=== PATIENT | female | born 1955 | race Caucasian/White ===

== ENCOUNTER 2023-04-29 06:01 | Inpatient (IN) ==
--- NOTE | 2023-04-07 11:23 | PAT Medication Instructions ---
Medication Instructions Date of Service April 07, 2023 Home Medications ascorbic acid (vitamin C) 1,000 mg tablet (Vitamin C) 1 g PO QAM cholecalciferol (vitamin D3) 25 mcg (1,000 unit) tablet (Vitamin D3) 25 mcg PO QAM ginkgo biloba 1 tab PO QAM glucosamine-chondroitin 250 mg-200 mg tablet (Osteo Bi-Flex) 1 tab PO QAM hydrocodone 5 mg-acetaminophen 325 mg tablet 1 tab PO HS PRN Pain ibandronate 150 mg tablet 150 mg PO MONTHLY ibuprofen 200 mg tablet (Advil) 400 mg PO BID PRN Pain magnesium citrate 100 mg tablet 400 mg PO QAM multivitamin 1 tab PO QAM psyllium husk 0.52 gram capsule (Fiber (psyllium husk)) 0.52 g PO BID rosuvastatin 5 mg tablet 5 mg PO QAM Continue as directed ibandronate 150 mg tablet 150 mg PO MONTHLY (unless surgeon directed otherwise) ASK your surgeon for instructions ibuprofen 200 mg tablet (Advil) 400 mg PO BID PRN Pain STOP taking 2 weeks before surgery ginkgo biloba 1 tab PO QAM glucosamine-chondroitin 250 mg-200 mg tablet (Osteo Bi-Flex) 1 tab PO QAM DO NOT take the morning of surgery ascorbic acid (vitamin C) 1,000 mg tablet (Vitamin C) 1 g PO QAM cholecalciferol (vitamin D3) 25 mcg (1,000 unit) tablet (Vitamin D3) 25 mcg PO QAM magnesium citrate 100 mg tablet 400 mg PO QAM multivitamin 1 tab PO QAM psyllium husk 0.52 gram capsule (Fiber (psyllium husk)) 0.52 g PO BID Take morning of surgery With a small sip of water, OTHERWISE NOTHING TO EAT OR DRINK AFTER MIDNIGHT: rosuvastatin 5 mg tablet 5 mg PO QAM Take evening before surgery hydrocodone 5 mg-acetaminophen 325 mg tablet 1 tab PO HS PRN Pain (if needed) psyllium husk 0.52 gram capsule (Fiber (psyllium husk)) 0.52 g PO BID Other Notes If you have any questions please call us at [phone] or [phone] or [phone] or [phone]
--- NOTE | 2023-04-10 14:05 | Anesthesiology Consultation ---
Date of Service April 10, 2023 Assessment & Plan (1) Encounter for pre-operative examination: Chart Review Chart Review: Acceptable Risk for Surgery (pending PCP clearance with response re: anemia ) and Patient NOT seen in Pre Admission Testing - Awaiting PCP clearance 04/14/23 (Dr. Betts- [facility]) (Please send optimization form along with preop testing to PCP - need response) Per PAT appt on 04/10/23, no recent illness/disease exposures, illness related symptoms, or recent illness/disease positive tests. Will leave to surgeon's discretion if preop Covid testing needed Teaching & Discussion Pre-Anesthesia Teaching/Discussion Notes: Instructed NPO after midnight before surgery,except medications with 15 cc of water. Medication instructions provided according to the PAT guidelines. History Surgery Operation Date: 04/29/23 12:25 Proposed Procedures p C5-C7 Anterior Cervical Discectomy and Fusion - Ajit Rincon DO Height/Weight Height: 5 ft 2 in Weight: 61.3 kg Allergies Allergy/AdvReac Type Severity Reaction Status Date / Time Penicillins Allergy Severe Rash Verified 04/07/23 10:18 Medications Home Medications Medication Instructions Recorded Confirmed Last Taken ascorbic acid (vitamin C) 1,000 mg 1 g PO QAM 04/07/23 04/07/23 Unknown tablet (Vitamin C) cholecalciferol (vitamin D3) 25 25 mcg PO QAM 04/07/23 04/07/23 Unknown mcg (1,000 unit) tablet (Vitamin D3) ginkgo biloba 1 tab PO QAM 04/07/23 04/07/23 Unknown glucosamine-chondroitin 250 mg-200 1 tab PO QAM 04/07/23 04/07/23 Unknown mg tablet (Osteo Bi-Flex) hydrocodone 5 mg-acetaminophen 325 1 tab PO HS PRN Pain 04/07/23 04/07/23 Unknown mg tablet ibandronate 150 mg tablet 150 mg PO MONTHLY 04/07/23 04/07/23 Unknown ibuprofen 200 mg tablet (Advil) 400 mg PO BID PRN Pain 04/07/23 04/07/23 Unknown magnesium citrate 100 mg tablet 400 mg PO QAM 04/07/23 04/07/23 Unknown multivitamin 1 tab PO QAM 04/07/23 04/07/23 Unknown psyllium husk 0.52 gram capsule 0.52 g PO BID 04/07/23 04/07/23 Unknown (Fiber (psyllium husk)) rosuvastatin 5 mg tablet 5 mg PO QAM 04/07/23 04/07/23 Unknown Past Medical History Medical History Irregular heart beat "an extra beat" cardiac workup with PCP was negative. no current issues. History of COVID-14 January 2021 -> severe flu symptoms and loss of taste/smell- no current symptoms Bulging of cervical intervertebral disc Degenerative disc disease Chronic neck pain Hyperlipidemia Exercise / Class Metabolic Activity II 4-5 Yardwork/Stairs/Walk up hill (one flight of stairs - no chest pain or SOB ) Past Family History Family History Mother FHx: colon cancer Family history of leukemia Family history of cervical cancer Past Surgical History Surgical History (Updated 04/11/23 @ 08:40 by Jody Diaz PA-C) History of ankle surgery bilateral ankle spurs removed S/P laparotomy with lysis of adhesions History of section x3 History of breast biopsy benign S/P epidural steroid injection cervical History of colonoscopy H/O partial thyroidectomy (~1984) follicular adenoma/goiter History of carpal tunnel release Left side 04/09/23 Right side 03/24/23 (Patient states both [facility] surgeon's are aware of CTR and cervical surgery) Past Anesthesia History No Hx of Anesthesia Complications and No Family Hx of Anesthesia Complications History of PONV No Hx of PONV and No Hx of Motion Sickness Social History Smoking Status: Never smoker Do You Dip or Chew Tobacco: No Hx Alcohol Use: No Hx Substance Use: No substance use type: does not use Review of Systems - Hx of snoring- no hx of sleep study (sleeps alone) Patient denies chest pain, shortness of breath, dyspnea on exertion, reflux, cough, wheezing, palpitations. No hx of seizures, stroke, OR. No hx of blood clots or blood transfusions Physical Exam Vital Signs VITALS BP 122/69 P 70 TEMP 98.3 SP02 97% RESP 16 Constitutional no acute distress ENMT Mouth: no TMJ clicking Thyromental Distance: < 3.5 Finger Breadths (3.0) Mallampati Class: I Missing molar Crowns to molar Permanent bridge to side teeth Neck + limited neck extension (significant) Respiratory normal respiratory effort; no respiratory distress Auscultation: lungs clear to auscultation bilaterally; no wheezes Cardiovascular Rate/Rhythm: regular rate and regular rhythm Heart Sounds: no murmur Vessels: no carotid bruit Musculoskeletal Spine: + pain with cervical ROM Extremities: extremities normal to inspection Right hand swollen from previous CTR 03/24/23 Left hand currently wrapped in bandage from CTR 04/09/23 Psychiatric Orientation: alert Lab Results Anesthesia Preop Results Results Anesthesia Widget: WBC 8.94 K/ul (4.8-10.8) 04/10/23 Hgb 11.0 g/dl (12.0-16.0) L 04/10/23 Hct 33.2 % (37.0-47.0) L 04/10/23 Plt 330 K/uL (130-400) 04/10/23 Na 138 mmol/L (136-145) 04/10/23 K 4.0 mmol/L (3.5-5.1) 04/10/23 Cl 104 mmol/L (98-107) 04/10/23 CO2 26 mmol/L (21-32) 04/10/23 BUN 16 mg/dl (6-23) 04/10/23 Creat 0.42 mg/dl (0.6-1.2) L 04/10/23 Glucose Level 135 mg/dl (70-99(Fasting)) H 04/10/23 PT 10.3 Seconds (9.0-12.0) 04/10/23 PTT 27 Seconds (21-31) 04/10/23 INR 0.9 (0.9-1.1) 04/10/23 Urine Color Dark Yellow 04/10/23 Urine Appearance Clear (Clear) 04/10/23 Urine pH 7.0 (4.5-7.5) 04/10/23 Urine Specific Bent[place] 1.015 (1.000-1.030) 04/10/23 Urine Protein Negative (Negative) 04/10/23 Urine Glucose (UA) Negative (Negative) 04/10/23 Urine Ketones Negative (Negative) 04/10/23 Urine Blood Negative (Negative) 04/10/23 Urine Nitrite Negative (Negative) 04/10/23 Urine Bilirubin Negative (Negative) 04/10/23 Urine Urobilinogen Negative (Negative) 04/10/23 Urine Leukocyte Esterase Negative (Negative) 04/10/23 Blood Type A Positive 04/10/23 Antibody Screen NEGATIVE 04/10/23 Testing Laboratory Results Mild anemia - did have PERSON[facility] PROTE[employer]IST on 04/09/23 and 03/24/23- note sent to PCP to address at PCP appt; surgeon's office also informed 03/17/23= HGB A1C: 5.8 Electrocardiogram Date: 04/10/23 Findings: + NSR @ (71bpm) Diffuse minor nonspecific ST abnormality Chest X-Ray Date: 04/10/23 Findings: + NAD FINDINGS: Cardiomediastinal and hilar silhouettes are within normal limits. No pneumothorax, pleural effusion, airspace consolidation or pulmonary edema. Spondylitic spurring of the spine. Other Testing Holter monitor 02/15/2021 = normal Holter monitor study. Brief runs of PSVT. Longest 16 beats.
[~2023-04-29 06:01] MED LIST: ACETAMINOPHEN 500 MG TAB PO SCH; CeleBREX 200 MG CAP PO SCH; GABAPENTIN 300 MG CAP PO SCH; LR 15ML/HR IV SCH; LR 60ML/HR IV SCH; VANCOMYCIN HCL 1,000 MG/270 ML BAG IV SCH
[2023-04-29] MEDS ORDERED: fentaNYL citrate PF 100 MCG/2 ML VIAL ONE ×2 (07:03→08:31)
[2023-04-29] MEDS ORDERED: MIDAZOLAM HCL 1 MG/ML 2ML VIAL ONE (07:03)
[2023-04-29] MEDS ORDERED: ceFAZolin 330 MG/ML 1 GM VIAL ONE (07:04)
[2023-04-29] MEDS ORDERED: ROCURONIUM BROMIDE 10 MG/ML 5 ML VIAL IV ONE ×2 (07:13→08:17)
[2023-04-29] MEDS ORDERED: PROPOFOL IV EMULSION 10 MG/ML 20 ML VIAL IV ONE (07:13)
[2023-04-29] MEDS ORDERED: DEXAMETHASONE SOD INJ 4 MG/ML VIAL ONE (07:13)
[2023-04-29] MEDS ORDERED: LIDOCAINE 2% 2 ML VIAL/AMP(20MG/ML) INFIL ONE (07:13)
[2023-04-29] MEDS ORDERED: ONDANSETRON INJ 2 MG/ML 2 ML VIAL ONE (07:13)
--- NOTE | 2023-04-29 07:41 | History & Physical Bridge Note ---
Date of Service April 29, 2023 History & Physical Bridge Note I have examined the patient, reviewed the History & Physical and in the interval since the performance of the History & Physical I have noted the following changes of clinical significance: no changes noted
--- NOTE | 2023-04-29 07:42 | History & Physical Report ---
Date of Service April 29, 2023 Assessment & Plan (1) Cervical stenosis of spinal canal: Plan: Anterior cervical discectomy and fusion C5-C7 History of Present Illness Chief Complaint: Neck and arm pain Primary Care Provider: Dylan Morel MD This is a 67-year-old female who presents for chronic persistent neck and arm pain after failing course of nonoperative care is here for surgical invention. Allergies Allergy/AdvReac Type Severity Reaction Status Date / Time Penicillins Allergy Severe Rash Verified 04/29/23 06:51 Home Medications Medication Instructions Recorded Confirmed Type ascorbic acid (vitamin C) 1,000 mg 1 g PO QAM 04/07/23 04/29/23 History tablet (Vitamin C) cholecalciferol (vitamin D3) 25 25 mcg PO QAM 04/07/23 04/29/23 History mcg (1,000 unit) tablet (Vitamin D3) ginkgo biloba 1 tab PO QAM 04/07/23 04/29/23 History glucosamine-chondroitin 250 mg-200 1 tab PO QAM 04/07/23 04/29/23 History mg tablet (Osteo Bi-Flex) hydrocodone 5 mg-acetaminophen 325 1 tab PO HS PRN Pain 04/07/23 04/29/23 History mg tablet ibandronate 150 mg tablet 150 mg PO MONTHLY 04/07/23 04/29/23 History ibuprofen 200 mg tablet (Advil) 400 mg PO BID PRN Pain 04/07/23 04/29/23 History magnesium citrate 100 mg tablet 400 mg PO QAM 04/07/23 04/29/23 History multivitamin 1 tab PO QAM 04/07/23 04/29/23 History psyllium husk 0.52 gram capsule 0.52 g PO BID 04/07/23 04/29/23 History (Fiber (psyllium husk)) rosuvastatin 5 mg tablet 5 mg PO QAM 04/07/23 04/29/23 History Past Med/Surg History Medical History (Updated 04/29/23 @ 07:42 by Ajit Rincon DO) Irregular heart beat "an extra beat" cardiac workup with PCP was negative. no current issues. History of COVID-14 January 2021 -> severe flu symptoms and loss of taste/smell- no current symptoms Bulging of cervical intervertebral disc Degenerative disc disease Chronic neck pain Hyperlipidemia Surgical History (Updated 04/11/23 @ 08:40 by Jody Diaz PA-C) History of ankle surgery bilateral ankle spurs removed S/P laparotomy with lysis of adhesions History of section x3 History of breast biopsy benign S/P epidural steroid injection cervical History of colonoscopy H/O partial thyroidectomy (~1984) follicular adenoma/goiter History of carpal tunnel release Left side 04/09/23 Right side 03/24/23 (Patient states both [facility] surgeon's are aware of CTR and cervical surgery) Family History Mother FHx: colon cancer Family history of leukemia Family history of cervical cancer Social History Smoking Status: Never smoker Second Hand Exposure: No; Do You Dip or Chew Tobacco: No; Tobacco Cessation Education Requested by Patient: No Hx Alcohol Use: No Hx Substance Use: No Preferred Language: Lao Communication Ability: Effective Correctional Guard Required: No Beliefs That Will Affect Care: None Current Living Situation: Alone Other Information That Helps Us Care for You: No Feels Safe at Home: Yes Safety Concerns: Feels Safe At This Time Assistive Devices: Glasses and Hearing Aid - Bilateral Physical Exam Physical Exam: Patient is alert and oriented Heart regular in rhythm Lungs clear Results & Data Results & Data Vital Signs (Past 12 Hours) Vital Signs Temp Pulse Resp BP Pulse Ox O2 Del Method 04/29/23 06:46 36.9 C 82 20 141/75 H 100 Room Air
[2023-04-29] MEDS ORDERED: ePHEDrine sulfate 50 MG/ML AMP IV PRN (08:12)
[2023-04-29] MEDS ORDERED: PROMETHAZINE HCL 12.5 MG in SODIUM CHLORIDE 0.9% 50 ML IV PRN ×2 (08:12→10:54)
[2023-04-29] MEDS ORDERED: HYDROmorphone INJ 1 MG/ML SYRINGE IV PRN ×2 (08:12→10:54)
[2023-04-29] MEDS ORDERED: ONDANSETRON INJ 2 MG/ML 2 ML VIAL IV PRN ×2 (08:12→10:54)
[2023-04-29] MEDS ORDERED: ATROPINE SULFATE 0.1 MG/ML 10ML SYR IV PRN (08:12)
[2023-04-29] MEDS ORDERED: LABETALOL HCL IV 5 MG/ML 20ML IV PRN (08:12)
[2023-04-29] MEDS ORDERED: NALOXONE HCL 0.4 MG/1 ML VIAL/CARP IV PRN ×2 (08:12→10:54)
[2023-04-29] MEDS ORDERED: fentaNYL citrate PF 100 MCG/2 ML VIAL IV PRN (08:12)
[2023-04-29] MEDS ORDERED: FLUMAZENIL 0.1 MG/1 ML 10 ML VIAL IV PRN (08:12)
[2023-04-29] MEDS ORDERED: diphenhydrAMINE 50 MG/ML VIAL ONE (08:24)
[2023-04-29] MEDS ORDERED: SUGAMMADEX SODIUM 200 MG/2 ML VIAL IV ONE (08:55)
[2023-04-29] MEDS ORDERED: FLOSEAL HEMOSTATIC MATRIX 10ML TOP ONE (09:00)
[2023-04-29] MEDS ORDERED: PHENYLEPHRINE HCL 10 MG/ML VIAL ONE (09:07)
--- NOTE | 2023-04-29 09:24 | Operative Report ---
Post Operative Report Pre & Post Diagnosis Operation Date: 04/29/23 07:45 Pre-Op Diagnosis: Cervical spinal stenosis with radiculopathy Post-Op Diagnosis: Same I identified the patient and participated in the time-out.: Yes Procedure Operation Date: 04/29/23 07:45 Actual Procedures 1. Anterior cervical discectomy with bilateral foraminotomies C5-C6 C6-C7. #2 anterior cervical recent C5-C6 C6-C7. #3 placement Spira 6 mm cage C5-C6. 7 mm cage at C6-C7 both filled with I factor bone graft. #4 application of K2 M plate and screws at C5-C7. Surgeon Ajit Rincon, DO Skip Tender Martha Giraldo Estimated Blood Loss 10 Findings Consistent with Post-Op Diagnosis Specimens none Indications This is a 67-year-old female who presents above-mentioned diagnosis of failed course of nonoperative care is here for surgical intervention. Description of Procedure Patient was met with identified informed consent obtained. Patient was then taken to the operative suite underwent patient placed in a supine position on the Gen table with the head in the Ybarra head order. All bony prominences well-padded eyes inspected to ensure no external pressure placed upon. This point the anterior cervical spine was prepped and draped in a sterile fashion. With the assistance of fluoroscopy and L5-C6 vertebral body and a transverse incision was placed along the right anterior aspect of the cervical spine overlying this region. Blunt dissection with the assistance of bipolar cautery was performed down to expose the anterior cervical spine from C5-C7. Self-retaining tractors placed. Then performed a complete discectomy at C5-C6 out to the uncovertebral joints bilaterally. [place] distractor pins utilized to assist in visualization. Removed all posterior fibers longitudinal ligament bilateral foraminotomies performed and a 6 mm Spira cage with I factor tapped in position. Then proceeded to see 6 C7. Again complete discectomy performed out to evaluate diminished bilaterally. [place] distraction pins again utilized. Removed all posterior annular fibers longitudinal ligament bilateral foraminotomies performed and a 7 mm Spira cage with I factor tapped in position. Distracting apparatus was removed all anterior osteophytes burred to a smooth cortical surface and a K2 M plate and screws applied with the assistance of fluoroscopy. Incision was then copiously irrigated explored to ensure no damage surrounding structure remaining bleeding. 10 round ALON inserted. The incision was then closed with 2 Vicryl in a fashion of 4 Monocryl for final skin closure. Steri-Strips sterile dressing placed. Patient waken taken to recovery in stable condition. Please note spinal cord monitoring visualized at the procedure no changes noted. Lastly Martha Giraldo was present at the entire surgery involved the patient positioning complex portion of the surgery and final skin closure. I attest to the content of the Intraoperative Record and any orders documented therein. Any exceptions are noted below.
--- NOTE | 2023-04-29 09:40 | Fluoroscopy Report ---
INTRAOPERATIVE RADIOGRAPHS CLINICAL HISTORY: Cervical spinal fusion. Fluoro time: 13 seconds Ka,r: 1.46 mGy FINDINGS: 2 spot fluoroscopic views of the cervical spine are presented. There has been discectomy at C5-C6 and C6-C7 with anterior fusion at C5-C7. The orthopedic hardware appears intact. An endotrache al tube is in place. IMPRESSION: Intraoperative images from cervical spine fusion surgery as above. Electronically signed by: Renato Castro M.D. 04/29/2023 9:39 AM
--- NOTE | 2023-04-29 10:33 | Anesthesiology Progress Note ---
Date of Service April 29, 2023 Anesthesia Post Procedure Vital Signs Vital Signs: Temp Pulse Pulse Resp BP Pulse Ox O2 Del Method 04/29/23 10:20 71 16 145/67 H 98 Room Air 04/29/23 10:10 65 12 144/78 H 100 Oxymask 04/29/23 10:00 71 13 158/82 H 100 Oxymask 04/29/23 09:50 67 20 153/76 H 98 Oxymask 04/29/23 09:40 75 18 164/81 H 100 Oxymask 04/29/23 09:33 36.4 C L 92 H 17 169/90 H 96 Oxymask 04/29/23 06:46 36.9 C 82 20 141/75 H 100 Room Air O2 Flow Rate 04/29/23 10:20 04/29/23 10:10 2 04/29/23 10:00 2 04/29/23 09:50 4 04/29/23 09:40 4 04/29/23 09:33 6 04/29/23 06:46 Pain Intensity Neck: Pain Intensity: 4 Transfer of Care Handoff Completed per policy Notes Mental Status: alert / awake / arousable Patient Amnestic to Procedure: Yes Nausea / Vomiting: adequately controlled Pain: adequately controlled Airway Patency, RR, SpO2: stable & adequate BP & HR: stable & adequate Hydration State: stable & adequate Anesthetic Complications: no major complications apparent
[2023-04-29] MEDS ORDERED: bisacodyL 10 MG SUPP PR PRN (10:54)
[2023-04-29] MEDS ORDERED: ACETAMINOPHEN 1,000 MG/100 ML VIAL IV PRN (10:54)
[2023-04-29] MEDS ORDERED: SOD PHOSPHATE/SOD BIPHOSPHATE ENEMA 132 ML BTL PR PRN (10:54)
[2023-04-29] MEDS ORDERED: diphenhydrAMINE Capsule 25 MG CAP PO PRN (10:54)
[2023-04-29] MEDS ORDERED: METOCLOPRAMIDE HCL INJ 5 MG/ML 2 ML VIAL IV PRN (10:54)
[2023-04-29] MEDS ORDERED: RACEPINEPHRINE 2.25% NEBU SOLN 0.5 ML VIAL INH PRN (10:54)
[2023-04-29] MEDS ORDERED: ALUMINUM/MAGNESIUM SUSP 30 ML UDC PO PRN (10:54)
[2023-04-29] MEDS ORDERED: ONDANSETRON 4 MG OD TAB PO PRN (10:54)
[2023-04-29] MEDS ORDERED: DO NOT ADMINISTER FLU VACCINE PRN (10:54)
[2023-04-29] MEDS ORDERED: ACETAMINOPHEN 500 MG TAB PO PRN (10:54)
[2023-04-29] MEDS ORDERED: LACTATED RINGER'S 1,000 ML IV SCH (10:54)
[2023-04-29] MEDS ORDERED: hydrOXYzine HCl 25 MG TAB PO PRN (10:54)
[2023-04-29] MEDS ORDERED: traMADol HCL 50 MG TABLET PO PRN (10:54)
[2023-04-29] MEDS ORDERED: LORazepam 0.5 MG TAB PO PRN (10:54)
[2023-04-29] MEDS ORDERED: oxyCODONE HCL IR 5 MG TAB (IMMEDIATE RELEASE) PO PRN (10:54)
[2023-04-29] MEDS ORDERED: LORazepam 0.5 MG in SYRINGE 0.25 ML IV PRN (10:54)
[2023-04-29] MEDS ORDERED: DO NOT ADMINISTER PNEUMOCOCCAL VACCINE PRN (10:54)
[2023-04-29] MEDS ORDERED: dexAMETHasone 8 MG in SYRINGE 0 ML IV PRN (10:54)
[2023-04-29] MEDS ORDERED: FAMOTIDINE 20 MG TAB PO PRN (10:54)
[2023-04-29] MEDS ORDERED: MAGNESIUM HYDROXIDE SUSP 30 ML UDC PO PRN (10:54)
--- NOTE | 2023-04-29 11:24 | Hospitalist Consultation ---
Date of Consultation April 29, 2023 Assessment & Plan (1) Cervical stenosis of spinal canal: (2) Chronic neck pain: (3) Degenerative disc disease: (4) Hyperlipidemia: Cervical Spine Stenosis DJD neck - POD #[address] Rincon -Pain management, bowel regimen and DVT ppx per the primary team - PT/OT consults, pt is planning on outpatient therapy for carpal tunnel history to continue after discharge - Follow am CBC to monitor for acute blood loss - Chloraseptic spray for sore throat - Tolerating clear liquid diet so will stop fluids due to 1+ pitting edema in BLE, edema in hands as well. Encourage movement, foot pump, elevation of legs while seated/laying flat, encourage ambulation HLD - Cont statin therapy DVT ppx: SCDs, teds Lines: 2 PIV FEN/GI: Stop fluids, continue clear liquid diet, advance as tolerated per primary team Dispo: Patient from home, lives alone, likely to remain in hospital x 1-2 more days Thank you for involving us in the care of Ms. Forman. Please do not hesitate to call with questions or concerns. At this time medicine service will follow along. Supervising Physician Co-Signing Physician Notes Patient is a 67-year-old female with history of hyperlipidemia, PACs, cervical spinal stenosis and other medical problems was consulted for postop medical management after having anterior cervical discectomy with bilateral foraminotom ies C5-C6 C6-C7 by Dr. Rincon on 04/29/2023. Patient is doing well postoperatively. Reports chronic bilateral upper extremity numbness which he attributes to carpal tunnel syndrome. Denies any significant pain at surgical site during my encounter. Also denies any dyspnea, dizziness, chest pain, nausea, vomiting, abdominal pain. On exam patient is moderately built and nourished, no apparent distress, normocephalic/atraumatic, EOMI,Neck+ surgical site in dressing, collar, normal breath sounds, clear to auscultation, S1-S2, no murmur, abdomen soft, nontender, normal bowel sounds, alert, awake, altered, grossly no focal deficits, trace pedal edema,+ arthritis changes in upper extremities. Patient is consulted for postop medical management. Monitor for blood loss anemia. Bowel regimen to prevent constipation. Wound care, DVT prophylaxis, activity as per primary team. Continue statin for hyperlipidemia. Aspiration precautions. I personally reviewed the record. Patient is interviewed and examined at bedside. Patient's care is coordinated with Ligia Beckham PA-C. Please refer to the documentation above for details of patient's presentation and for discussion of other issues. History of Present Illness Reason for Consultation: Postop medical management Requesting Physician: Dr. Rincon Attending Physician: Ajit Rincon, DO History of Present Illness This is a 67-year-old female with PMHx of DJD, chronic neck pain, hyperlipidemia, history sinus tachycardia with PACs, history of anterior infarct, which was worked up and cleared by cardiology prior to surgical intervention, who underwent a elective anterior cervical discectomy with bilateral foraminotomies C5-C6 C6-C7 by Dr. Rincon on 04/29/2023. The patient is present here with her daughter at bedside. Patient reports that she is doing well, pain is currently well-controlled. Reports minor sore throat but is tolerating sips of fluid without difficulty, no trouble with breathing. She admits to having some on and off constipation as she has been on pain medication for recent bilateral carpal tunnel release. She had her right hand done on 03/24/2023 and then the left hand 2 weeks later. She is still slightly swollen in both hands, more so in the right since having these procedures done. She has started working with physical therapy for her hands. Patient also notes that she needs knee injection for chronic osteoarthritis, that has been on hold for her to have the anterior cervical surgery. Patient reports that her last bowel movement was 2 days ago, hard stools, she is agreeable to taking fiber and a stool softener. Allergies Allergy/AdvReac Type Severity Reaction Status Date / Time Penicillins Allergy Severe Rash Verified 04/29/23 06:51 Home Medications Medication Instructions Recorded Confirmed Type ascorbic acid (vitamin C) 1,000 mg 1 g PO QAM 04/07/23 04/29/23 History tablet (Vitamin C) cholecalciferol (vitamin D3) 25 25 mcg PO QAM 04/07/23 04/29/23 History mcg (1,000 unit) tablet (Vitamin D3) ginkgo biloba 1 tab PO QAM 04/07/23 04/29/23 History glucosamine-chondroitin 250 mg-200 1 tab PO QAM 04/07/23 04/29/23 History mg tablet (Osteo Bi-Flex) hydrocodone 5 mg-acetaminophen 325 1 tab PO HS PRN Pain 04/07/23 04/29/23 History mg tablet ibandronate 150 mg tablet 150 mg PO MONTHLY 04/07/23 04/29/23 History ibuprofen 200 mg tablet (Advil) 400 mg PO BID PRN Pain 04/07/23 04/29/23 History magnesium citrate 100 mg tablet 400 mg PO QAM 04/07/23 04/29/23 History multivitamin 1 tab PO QAM 04/07/23 04/29/23 History psyllium husk 0.52 gram capsule 0.52 g PO BID 04/07/23 04/29/23 History (Fiber (psyllium husk)) rosuvastatin 5 mg tablet 5 mg PO QAM 04/07/23 04/29/23 History hydrocodone 5 mg-acetaminophen 325 1 tab PO Q6H PRN pain #30 tabs 04/29/23 Rx mg tablet Patient History Medical History Irregular heart beat "an extra beat" cardiac workup with PCP was negative. no current issues. History of COVID-14 January 2021 -> severe flu symptoms and loss of taste/smell- no current symptoms Bulging of cervical intervertebral disc Degenerative disc disease Chronic neck pain Hyperlipidemia Surgical History History of ankle surgery bilateral ankle spurs removed S/P laparotomy with lysis of adhesions History of section x3 History of breast biopsy benign S/P epidural steroid injection cervical History of colonoscopy H/O partial thyroidectomy (~1984) follicular adenoma/goiter History of carpal tunnel release Left side 04/09/23 Right side 03/24/23 (Patient states both [facility] surgeon's are aware of CTR and cervical surgery) Family History Mother FHx: colon cancer Family history of leukemia Family history of cervical cancer Social History Smoking Status: Never smoker Second Hand Exposure: No; Do You Dip or Chew Tobacco: No; Tobacco Cessation Education Requested by Patient: No Hx Alcohol Use: No Hx Substance Use: No Preferred Language: Macanese Communication Ability: Effective Member Of The Legislative [employer] Required: No Beliefs That Will Affect Care: None Current Living Situation: Alone Other Information That Helps Us Care for You: No Feels Safe at Home: Yes Safety Concerns: Feels Safe At This Time Assistive Devices: Glasses and Hearing Aid - Bilateral Review of Systems Review of Systems: Constitutional: No fever, sweats or chills Eyes: No diplopia, no worsening or blurred vision ENT: normal hearing, no trouble swallowing, minimal neck pain, + sore throat Respiratory: No cough, sputum, dyspnea at rest or on exertion Cardiovascular: No chest pain, tightness or palpitations Abdomen: No pain, nausea, vomiting, diarrhea, + constipation Musculoskeletal: + hx of knee arthritis, recent bilateral carpal tunnel release, no calf pain, + hand and bilateral ankle swelling Neurologic: No weakness, numbness/tingling, or balance problems Psychiatric: No anxiety or depression Skin: No rash or itch Physical Exam Physical Exam: General: awake, alert, no apparent distress, white elderly female Head: Normocephalic, atraumatic ENT: PERRL, EOMI, no pharyngeal exudate, mucous membranes moist Chest: Anterior discectomy dressing C/D/I, ALON drain in place, cervical collar in position, clear to auscultation, on room air, no adventitious breath sounds Cardiac: Regular rate and rhythm, + faint murmur, no JVD, +1 pitting edema in bilateral ankles, normal peripheral pulses, good capillary refill Abdominal: NABS x 4 quadrants, soft, nondistended, nontender to palpation, no rebound or guarding Extremities: Normal inspection, 1+ pitting peripheral edema in ankles, +edema in hand bilaterally, +healing bilateral carpal tunnel release, no erythema, calfs nontender to palpation Psych: Normal mood and affect Neuro: AAO x 3, strength intact bilaterally and rated 5/5, no motor deficits, speech is clear, no peripheral sensory deficits Results & Data Results & Data Vital Signs (Past 12 Hours) Vital Signs Temp Pulse Pulse Resp BP Pulse Ox O2 Del Method 04/29/23 11:00 36.7 C 70 16 135/55 L 96 Room Air 04/29/23 10:50 37.1 C 69 19 135/63 95 Room Air 04/29/23 10:40 72 17 136/71 99 Room Air 04/29/23 10:30 70 12 147/74 H 96 Room Air 04/29/23 10:20 71 16 145/67 H 98 Room Air 04/29/23 10:10 65 12 144/78 H 100 Oxymask 04/29/23 10:00 71 13 158/82 H 100 Oxymask 04/29/23 09:50 67 20 153/76 H 98 Oxymask 04/29/23 09:40 75 18 164/81 H 100 Oxymask 04/29/23 09:33 36.4 C L 92 H 17 169/90 H 96 Oxymask 04/29/23 06:46 36.9 C 82 20 141/75 H 100 Room Air O2 Flow Rate 04/29/23 11:00 04/29/23 10:50 04/29/23 10:40 04/29/23 10:30 04/29/23 10:20 04/29/23 10:10 2 04/29/23 10:00 2 04/29/23 09:50 4 04/29/23 09:40 4 04/29/23 09:33 6 04/29/23 06:46 Diagnostic Findings Cervical Spine X-Ray 04/29/23 07:45 INTRAOPERATIVE RADIOGRAPHS CLINICAL HISTORY: Cervical spinal fusion. Fluoro time: 13 seconds Ka,r: 1.46 mGy FINDINGS: 2 spot fluoroscopic views of the cervical spine are presented. There has been discectomy at C5-C6 and C6-C7 with anterior fusion at C5-C7. The orthopedic hardware appears intact. An endotracheal tube is in place. IMPRESSION: Intraoperative images from cervical spine fusion surgery as above. Electronically signed by: Renato Castro M.D. 04/29/2023 9:39 AM
[2023-04-29] MEDS ORDERED: CHLORASEPTIC (PHENOL) 1.4% SOLN 180 ML BTL MT PRN (12:08)
[2023-04-29] MEDS: HYDROmorphone INJ 0.5 MG/0.5 ML SYR IV PRN ×3 (13:02→19:31)
[2023-04-29] MEDS: CLINDAMYCIN/D5W 600 MG/50 ML BAG IV SCH ×2 (15:11→22:07)
[2023-04-29] MEDS ORDERED: DOCUSATE SODIUM/SENNA 50/8.6MG TAB PO SCH (21:00)
[2023-04-30] MEDS: HYDROmorphone INJ 0.5 MG/0.5 ML SYR IV PRN (05:39)
[2023-04-30] MEDS ORDERED: POLYETHYLENE (MIRALAX) 17 GM PACK PO SCH (06:00)
[2023-04-30 07:45] LABS: Hematocrit (blood only) 30.9 % (37.0-47.0); Hemoglobin 10.5 g/dl (12.0-16.0); Mean Corpuscular Hemoglobin 29.7 pg (25.0-34.0); Mean Corpuscular Volume 87.3 fL (80.0-100.0); Platelet Count 313 K/uL (130-400); RDW Coefficient of Variation 12.3 % (11.5-14.5); RDW Standard Deviation 39.8 fL (36.4-46.3); Red Blood Count 3.54 M/uL (4.20-5.40); White Blood Count 8.27 K/ul (4.8-10.8)
[2023-04-30 08:01] LABS: BUN Creatinine Ratio 23.1 (10-20); Calcium 8.6 mg/dl (8.6-10.3); Creatinine Clr Calc Pharmacy 107.7 ml/min; Est GFR (African American) 124.2 ml/min; Est GFR (Non-African American) 107.2 ml/min; Potassium 3.8 mmol/L (3.5-5.1)
[2023-04-30] MEDS ORDERED: MAGNESIUM OXIDE 400 MG TAB PO SCH (09:00)
[2023-04-30] MEDS ORDERED: ROSUVASTATIN CALCIUM 5 MG TAB PO SCH (09:00)
[2023-04-30] MEDS ORDERED: dexAMETHasone 6 MG in SYRINGE 0 ML IV SCH (09:00)
--- NOTE | 2023-04-30 11:06 | Discharge Summary ---
Date of Service April 30, 2023 Admission HPI Per Admitting Provider This is a 67-year-old female who presents for chronic persistent neck and arm pain after failing course of nonoperative care is here for surgical invention. Principal Diagnosis Cervical spinal stenosis with radiculopathy Discharge Data Allergies Allergy/AdvReac Type Severity Reaction Status Date / Time Penicillins Allergy Severe Rash Verified 04/29/23 06:51 Consultations 04/29/23 10:54 Consult Hospitalist Routine Procedures Performed Operation Date: 04/29/23 07:45 Actual Procedures p C5-C7 Anterior Cervical Discectomy and Fusion, Spinal Cord Monitor(Not Applicable) - Ajit Rincon DO Ordered Studies 04/29/23 07:45 FL cervical 2-3V Routine Hospital Course (1) Cervical stenosis of spinal canal: Patient went anterior cervical discectomy and fusion tolerated well stable orthopedic for postop labor postop day 1 she was swallowing well. No hoarseness. ALON drain decreasing probably. Excellent strength testing. Pain well-controlled. Subsequently discharged home. Discharge orders instructions from the chart for further review. Total Time Total Time Spent Total Time Spent (In Minutes): 20 minutes Discharge Plan Discharge Items Patient Disposition: Home - Self-Care Reason For Visit: Cervical Pain Discharge Diagnosis: Cervical spinal stenosis with radiculopathy Activity: As commented below Non-emergency contact: Primary Care Provider Call non-emergency contact if: you have any medication questions Follow-up/Referrals: Dylan Morel MD [Primary Care Provider] - Diet: Regular Addtl Attending Provider Instructions: ACTIVITY RECOMMENDATIONS: SELF CARE INSTRUCTIONS AFTER CERVICAL FUSIONS 1. No smoking. Smoking drastically decreases the chance of a solid fusion. 2. No bending, lifting more than 5 pounds, or twisting (roll like a log when turning in bed). 3. You may shower 3 days after surgery. Thoroughly dry wound. Do not soak in the tub. 4. Cervical collar: Must be worn at all times including sleeping. You may remove the brace only to bath, eat and if you are sitting in a recliner. 5. Please walk as much as you can for exercise. Gradually increase the distance that you walk as your endurance increases. SPECIAL CARE INSTRUCTIONS: VERY IMPORTANT TO READ AND REVIEW A. Do not take any anti-inflammatory medications (i.e. Indocin, Advil, Aspirin, Naprosyn, Aleve, Motrin, etc.) as these may inhibit the chance of a solid fusion. Tylenol is okay to take. B. Your surgical incision has been closed with a cosmetic suture under the skin that will dissolve in about 6 weeks. In 14 days, you can use a pair of clean scissors and cut the suture that is left outside of the skin at the ends of your incision. C. Complications are uncommon, but please contact us if you have any signs or symptoms of: 1. wound infection (fever higher than 102.5 degrees F, redness, separation of wound, drainage, or increasing pain from the incision) 2. blood clots in legs (pain, swelling, redness and warmth in legs) 3. urinary tract infection (fever higher than 102.5 degrees, burning upon urination or increased frequency of urination) 4. nerve problems (inability to walk on your toes or heels, numbness, loss of bowel or bladder control) 5. any other symptoms that concern you. D. Please call the office at if you have any concerns or questions about your operation or recovery. MANAGING PAIN AFTER SPINAL SURGERY 1. Narcotic medication is intended for short-term use and will be provided for surgical pain. Surgical pain usually lasts for a period of 4-6 weeks. Narcotic medication includes Percocet, Vicodin, Darvocet, Tylenol #3 or Lortab. 2. Longer-term pain is more appropriately treated with non-narcotic medication such as Tylenol ES. 3. Muscle spasm is not appropriately treated with narcotics. Muscle relaxers such as Soma, Flexeril or Skelaxin can be used along with Tylenol ES. 4. Remember that we all live with some "aches and pains". This is not unusual or uncommon after an injury or as we get older. 5. We will provide appropriate medication within the normal guidelines of their prescribed use. We will also be very cautious and aware of potential abuse and extended duration of patients' medication needs. 6. Please allow 2-3 days to process refills. Prescriptions will not be mailed but must be picked up at the office. FOLLOW UP VISIT: Keep your scheduled follow-up appointment. Any questions, please call the office at . Pending Studies at Discharge: No Stand-Alone Forms: iconDial, Smoking Cessation Medications and DC Order Prescriptions: New hydrocodone-acetaminophen 5-325 mg tablet 1 tab PO Q6H PRN (Reason: pain) Qty: 30 0RF Continued rosuvastatin 5 mg Tablet 5 mg PO QAM ibandronate 150 mg Tablet 150 mg PO MONTHLY multivitamin Tablet 1 tab PO QAM ascorbic acid (vitamin C) [Vitamin C] 1,000 mg Tablet 1 g PO QAM glucosamine-chondroitin [Osteo Bi-Flex] 250-200 mg Tablet 1 tab PO QAM psyllium husk [Fiber (psyllium husk)] 0.52 gram Capsule 0.52 g PO BID cholecalciferol (vitamin D3) [Vitamin D3] 25 mcg (1,000 unit) Tablet 25 mcg PO QAM magnesium citrate 100 mg Tablet 400 mg PO QAM ginkgo biloba 1 tab PO QAM hydrocodone-acetaminophen 5-325 mg Tablet 1 tab PO HS PRN (Reason: Pain) Discontinued ibuprofen [Advil] 200 mg Tablet 400 mg PO BID PRN (Reason: Pain) Discharge Orders: Discharge Order (Routine); Ordered 04/30/23 Ordered By: Ajit Rincon Admission Data Admit Date/Time: 04/29/23 09:27 Attending Provider: Ajit Rincon Admit Provider: Ajit Rincon Primary Care Provider: Dylan Morel Other Providers: Carisa Herrera
--- NOTE | 2023-04-30 11:47 | Hospitalist Progress Note ---
Date of Service April 30, 2023 Assessment & Plan (1) Cervical stenosis of spinal canal: (2) Chronic neck pain: (3) Degenerative disc disease: (4) Hyperlipidemia: Plan: Acute blood loss anemia secondary to post opertive loss -04/10 hgb 11.0, 04/30 hgb 10.5 10.5, corresponds to intraoperative losses documented Patient should follow up OP cbc Cervical Spine Stenosis DJD neck - POD #[address] Rincon -Pain management, bowel regimen and DVT ppx per the primary team - Discharge per primary HLD - Cont statin therapy DVT ppx: SCDs, teds Lines: 2 PIV FEN/GI: Stop fluids, continue clear liquid diet, advance as tolerated per primary team Dispo: Patient from home, lives alone, discharge per primary Thank you for involving us in the care of Ms. Forman. Please do not hesitate to call with questions or concerns. At this time medicine service will follow along. Admission and Anticipated Discharge Date Admission Date: April 29, 2023 Subjective Reports feeling "surprisingly"well after surgery Denies any uncontrolled pain at this time Review of Systems Review of Systems: All systems reviewed & are unremarkable except as noted in Subjective Physical Exam Constitutional: WD/WN, vitals as above Neck: c-collar in place, dressing anterior neck no strike through CDI Cardiovascular: RRR, no murmur, no edema Gastrointestinal (Abdomen): normal bowel sounds, soft, nontender, no hepatosplenomegaly Musculoskeletal: no cyanosis or clubbing, extremities motor strength 5/5 Results & Data Results & Data Vital Signs (Past 12 Hours) Vital Signs Temp Pulse Resp BP Pulse Ox O2 Del Method 04/30/23 10:19 78 16 95 Room Air 04/30/23 05:43 36.7 C 77 16 117/63 97 Room Air 04/30/23 05:42 71 16 97 Room Air 04/30/23 03:51 36.8 C 66 16 120/68 97 Room Air 04/30/23 03:15 74 18 97 Room Air 04/30/23 01:56 36.8 C 73 16 118/67 95 Room Air 04/30/23 00:00 36.7 C 83 16 114/67 97 Room Air Laboratory Results Short CBC 04/30/23 Range/Units 07:11 WBC 8.27 (4.8-10.8) K/ul Hgb 10.5 L (12.0-16.0) g/dl Hct 30.9 L (37.0-47.0) % Plt Count 313 (130-400) K/uL BMP 04/30/23 07:11 Sodium 136 Potassium 3.8 Chloride 102 Carbon Dioxide 27 BUN 9 Creatinine 0.39 L Glucose 100 H Calcium 8.6 Medications Administered Home Medications Medication Instructions Recorded Confirmed Last Taken ascorbic acid (vitamin C) 1,000 mg 1 g PO QAM 04/07/23 04/29/23 04/28/23 08:00 tablet (Vitamin C) cholecalciferol (vitamin D3) 25 25 mcg PO QAM 04/07/23 04/29/23 04/28/23 08:00 mcg (1,000 unit) tablet (Vitamin D3) ginkgo biloba 1 tab PO QAM 04/07/23 04/29/23 04/15/23 glucosamine-chondroitin 250 mg-200 1 tab PO QAM 04/07/23 04/29/23 04/15/23 mg tablet (Osteo Bi-Flex) hydrocodone 5 mg-acetaminophen 325 1 tab PO HS PRN Pain 04/07/23 04/29/23 04/28/23 17:00 mg tablet ibandronate 150 mg tablet 150 mg PO MONTHLY 04/07/23 04/29/23 Unknown magnesium citrate 100 mg tablet 400 mg PO QAM 04/07/23 04/29/23 04/23/23 multivitamin 1 tab PO QAM 04/07/23 04/29/23 04/28/23 08:00 psyllium husk 0.52 gram capsule 0.52 g PO BID 04/07/23 04/29/23 04/28/23 20:00 (Fiber (psyllium husk)) rosuvastatin 5 mg tablet 5 mg PO QAM 04/07/23 04/29/23 04/29/23 04:30 hydrocodone 5 mg-acetaminophen 325 1 tab PO Q6H PRN pain #30 tabs 04/29/23 Unknown mg tablet
== END 2023-04-30 12:32 | disposition home or self-care (01) | DRG 472 ==
LOC: ASU 06:01 → 3E 09:27